=== PATIENT | male | born 1945 | race African-American/Black ===

== ENCOUNTER 2021-07-12 20:28 | Observation (INO) | payer MEDICARE ==
[2021-07-12 20:58] LABS: Bilirubin Neg (Negative); Blood, Urine Negative (Negative); Clarity Clear (Clear); Glucose, Urine (Dipstick) Normal (Negative); Ketone, Urine Negative (Negative); Leukocyte Negative (Negative); Nitrite Negative (Negative); Protein, Urine (Dipstick) Negative (Neg-Trace); Urobilinogen Normal mg/dL (Less than 2)
[2021-07-12 21:09] LABS: Hemoglobin 13.6 g/dL (13.5-17.5); Mean Corpuscular HGB CONC 32.3 g/dL (32.0-36.0); Mean Corpuscular Hemoglobin 28.4 pg (27.0-33.0); Mean Corpuscular Volume 87.9 fl (81.2-95.1); Mean Platelet Volume 11.3 fl (7.4-10.4); Platelet Count 124 10x3/uL (150-450); RBC Distribution Width 14.6 % (11.5-14.5); Red Blood Cell (RBC) Count 4.79 10x6/uL (4.32-5.72); White Blood Cell (WBC) Count 5.7 10x3/uL (3.5-10.5)
[2021-07-12 21:10] LABS: MDiff Complete? YES
[2021-07-12 21:33] LABS: ALT (SGPT) 16 U/L (8-55); AST (SGOT) 22 U/L (5-34); Albumin 4.1 g/dL (3.4-4.8); Alkaline Phosphatase 47 U/L (40-110); Anion Gap 13 mmol/L (10-20); BUN (Urea Nitrogen) 17 mg/dL (8.4-25.7); Bilirubin, Total 0.6 mg/dL (0.2-1.2); Calc. Creatinine Clearance 0 mL/min (70-130); Calcium 8.9 mg/dL (7.8-10.44); Carbon Dioxide 23 mmol/L (23-31); Chloride 108 mmol/L (98-107); Globulin 2.8 g/dL (2.4-3.5); Glucose 97 mg/dL (83-110); Lipase 45 U/L (8-78); Potassium 4.3 mmol/L (3.5-5.1); Protein, Total 6.9 g/dL (5.8-8.1); Sodium 140 mmol/L (136-145)
[2021-07-12 21:52] LABS: CKMB 1.7 ng/mL (0-6.6)
[2021-07-12] MEDS ORDERED: Aspirin Chewable 81 MG TAB ONE (22:08)
[2021-07-12] MEDS ORDERED: Calcium Carbonate 500 MG ChewTAB PO PRN (22:23)
[2021-07-12] MEDS ORDERED: Acetaminophen 325 MG TAB PO PRN (22:23)
[2021-07-12] MEDS ORDERED: Ondansetron PF 4 MG/2 ML Vial IVP PRN (22:23)
[2021-07-12] MEDS ORDERED: HYDROcodone/Acetaminophen 5/325 mg Tablet PO PRN (22:23)
[2021-07-12] MEDS ORDERED: Zolpidem Tartrate 5 MG TAB PO PRN (22:23)
[2021-07-12] MEDS ORDERED: Guaifenesin DM 100-10/5 ML UDCUP PO PRN (22:23)
[2021-07-12] MEDS ORDERED: Lactated Ringer's 1,000 ML IV SCH (22:30)
[2021-07-12] MEDS ORDERED: Famotidine/PF 20 mg/2ml Vial SLOW IVP SCH (22:30)
[2021-07-12 23:29] LABS: Band 14 % (5-11); Eosinophils 1 % (0-10); Lymphocytes 6 % (21-51); Monocytes 8 % (0-10); Neutrophil 71 % (42-75)
[2021-07-12 23:31] LABS: Platelet Morphology Comment Appears Decreased
[2021-07-12 23:32] LABS: Anisocytosis SLIGHT = 6-15 cells (100X) (0-5/hpf); Ovalocytes SLIGHT = 2-5 cells (100X) (0-1/hpf)
[2021-07-13 00:11] VITALS: BMI 22.4
[2021-07-13 00:51] LABS: SARS-CoV-2 NAA Rapid Test Not Detected (NotDetected)
[2021-07-13 05:07] LABS: Anion Gap 14 mmol/L (10-20); BUN (Urea Nitrogen) 17 mg/dL (8.4-25.7); CK (CPK) 121 U/L (30-200); Calc. Creatinine Clearance 77 mL/min (70-130); Calcium 8.7 mg/dL (7.8-10.44); Carbon Dioxide 20 mmol/L (23-31); Chloride 110 mmol/L (98-107); Glucose 106 mg/dL (83-110); Magnesium 1.7 mg/dL (1.6-2.6); Potassium 4.1 mmol/L (3.5-5.1); Sodium 140 mmol/L (136-145)
[2021-07-13 05:23] LABS: Hemoglobin 13.1 g/dL (13.5-17.5); Mean Corpuscular HGB CONC 33.5 g/dL (32.0-36.0); Mean Corpuscular Hemoglobin 28.3 pg (27.0-33.0); Mean Corpuscular Volume 84.4 fl (81.2-95.1); Platelet Count 129 10x3/uL (150-450); RBC Distribution Width 14.7 % (11.5-14.5); Red Blood Cell (RBC) Count 4.63 10x6/uL (4.32-5.72); White Blood Cell (WBC) Count 5.9 10x3/uL (3.5-10.5)
[2021-07-13 05:25] LABS: CKMB 1.5 ng/mL (0-6.6)
[2021-07-13 06:03] LABS: MDiff Complete? YES
[2021-07-13 06:06] LABS: Band 11 % (5-11); Eosinophils 2 % (0-10); Lymphocytes 3 % (21-51); Monocytes 20 % (0-10); Neutrophil 63 % (42-75)
[2021-07-13 06:07] LABS: Anisocytosis SLIGHT = 6-15 cells (100X) (0-5/hpf); Platelet Morphology Comment Appears Decreased
[2021-07-13] MEDS ORDERED: Sotalol HCl 80 MG TAB PO SCH (09:00)
[2021-07-13] MEDS ORDERED: Enoxaparin Sodium 40 MG/0.4 ML SYRINGE SC SCH (09:00)
[2021-07-13] MEDS ORDERED: Aspirin 81 mg Enteric Coated Tablet PO SCH (09:00)
[2021-07-13] MEDS: Metoprolol Tartrate 25 MG TAB PO SCH ×2 (09:02→09:09)
[2021-07-13] MEDS: Famotidine/PF 20 mg/2ml Vial SLOW IVP SCH ×2 (09:03→09:10)
[2021-07-13] MEDS: Finasteride 5 MG TAB PO SCH ×2 (09:03→09:09)
[2021-07-13 09:21] LABS: CKMB 1.1 ng/mL (0-6.6)
[2021-07-13 11:40] VITALS: BP 109/57; TEMP 98.9
[2021-07-13] MEDS ORDERED: Magnesium 2 GM/50 ML(in water) 2 GM in Premix Bag 1 BAG IVPB SCH (15:00)
[2021-07-13] MEDS ORDERED: Rosuvastatin 20 MG TAB PO SCH (21:00)
[2021-07-13] MEDS ORDERED: Tamsulosin HCl 0.4 MG CAP PO SCH (21:00)
[2021-07-13] MEDS ORDERED: Mirtazapine 15 MG TAB PO SCH (21:00)
== END 2021-07-13 20:35 | disposition home or self-care (01) ==
LOC: CSHERS 20:28 → CSHTELE 23:35
PROVIDERS: ADMIT Student in an Organized Health Care Education/Training Program; ATTEND Nurse Practitioner Family
DX: I48.0 Paroxysmal atrial fibrillation (principal); Z79.01 Long term (current) use of anticoagulants; K52.9 Noninfective gastroenteritis and colitis, unspecified; E78.5 Hyperlipidemia, unspecified; N40.0 Benign prostatic hyperplasia without lower urinary tract symptoms; D69.6 Thrombocytopenia, unspecified; I25.118 Atherosclerotic heart disease of native coronary artery with other forms of angina pectoris; I11.0 Hypertensive heart disease with heart failure; I50.32 Chronic diastolic (congestive) heart failure
CPT/HCPCS: 0240U; 80048; 80053; 81003; 82550; 82553 ×2; 83690; 83735; 84439; 84443; 84481; 84484 ×3; 85025 ×2; 93005 ×2; 99285; 36415; 93010; 96374; G0378; J7120; S0028

== ENCOUNTER 2022-11-06 20:12 | Emergency (ER) | payer MEDICARE ==
[~2022-11-06 20:12] MED LIST: Iopamidol 370 76% 100 ML VIAL ONE
[2022-11-06] MEDS ORDERED: dilTIAZem 25 MG/5 ML VIAL ONE (20:51)
[2022-11-06] MEDS ORDERED: Aspirin Chewable 81 MG TAB ONE (20:51)
[2022-11-06 21:25] LABS: #Eosinphils 0.1 10x3/uL (0.0-0.5); #Monocytes 0.5 10x3/uL (0.0-1.1); #Neutrophils 1.8 10x3/uL (1.5-8.4); %Basophils 0.5 % (0.0-2.0); %Eosinophils 2.2 % (0.0-6.0); %Lymphocytes 35.3 % (18.0-47.0); %Monocytes 14.6 % (0.0-10.0); %Neutrophils 47.1 % (40.0-75.0)
[2022-11-06 21:26] LABS: D-Dimer Test 1.04 mg/L FEU (0.19-0.50); PTT 27.3 sec (22.0-33.0); Prothrombin Time 10.9 sec (9.5-12.1)
[2022-11-06 21:31] LABS: Hemoglobin 13.1 g/dL (13.5-17.5); Mean Corpuscular HGB CONC 33.5 g/dL (32.0-36.0); Mean Corpuscular Hemoglobin 28.3 pg (27.0-33.0); Mean Corpuscular Volume 84.4 fl (81.2-95.1); Mean Platelet Volume 11.3 fl (7.4-10.4); Platelet Count 127 10x3/uL (150-450); RBC Distribution Width 14.6 % (11.5-14.5); Red Blood Cell (RBC) Count 4.63 10x6/uL (4.32-5.72); White Blood Cell (WBC) Count 3.7 10x3/uL (3.5-10.5)
[2022-11-06 21:51] LABS: Anion Gap 17 mmol/L (10-20); BUN (Urea Nitrogen) 15 mg/dL (8.4-25.7); Calc. Creatinine Clearance 0 mL/min (70-130); Carbon Dioxide 19 mmol/L (23-31); Chloride 108 mmol/L (98-107); Potassium 4.6 mmol/L (3.5-5.1); Sodium 139 mmol/L (136-145)
[2022-11-06 21:52] LABS: ALT (SGPT) 14 U/L (8-55); AST (SGOT) 24 U/L (5-34); Alkaline Phosphatase 50 U/L (40-110); Bilirubin, Total 0.3 mg/dL (0.2-1.2); Estimated GFR 66; Globulin 3.2 g/dL (2.4-3.5); Glucose 104 mg/dL (83-110); Protein, Total 7.2 g/dL (5.8-8.1)
[2022-11-07] MEDS ORDERED: Acetaminophen 325 MG TAB PO PRN (00:17)
[2022-11-07] MEDS ORDERED: Ondansetron ODT 4 MG TAB PO PRN (00:17)
[2022-11-07] MEDS ORDERED: Ondansetron PF 4 MG/2 ML Vial IVP PRN (00:17)
[2022-11-07] MEDS ORDERED: Acetaminophen 650 MG Suppository PR PRN (00:17)
== END 2022-11-07 01:09 | disposition left against medical advice (07) ==
LOC: CSHERS 20:12
DX: I48.91 Unspecified atrial fibrillation (principal)
CPT/HCPCS: 71275; 80053; 83880; 84484; 85025; 85379; 85610; 85730; Q9967

== ENCOUNTER 2023-05-13 14:32 | Emergency (ER) | payer MEDICARE ==
[2023-05-13 15:14] LABS: ALT (SGPT) 18 U/L (8-55); AST (SGOT) 25 U/L (5-34); Albumin 3.6 g/dL (3.4-4.8); Alkaline Phosphatase 43 U/L (40-110); Anion Gap 14 mmol/L (10-20); BUN (Urea Nitrogen) 19 mg/dL (8.4-25.7); Calc. Creatinine Clearance 0 mL/min (70-130); Calcium 9.2 mg/dL (7.8-10.44); Carbon Dioxide 25 mmol/L (23-31); Chloride 100 mmol/L (98-107); Estimated GFR 58; Globulin 3.9 g/dL (2.4-3.5); Glucose 119 mg/dL (83-110); Potassium 4.1 mmol/L (3.5-5.1); Protein, Total 7.5 g/dL (5.8-8.1); Sodium 135 mmol/L (136-145)
[2023-05-13 15:15] LABS: #Monocytes 0.9 10x3/uL (0.0-1.1); #Neutrophils 3.1 10x3/uL (1.5-8.4); %Basophils 0.4 % (0.0-2.0); %Eosinophils 0.2 % (0.0-6.0); %Lymphocytes 22.2 % (18.0-47.0); %Neutrophils 59.6 % (40.0-75.0); Hematocrit 42.6 % (38.8-50.0); Hemoglobin 14.1 g/dL (13.5-17.5); Mean Corpuscular HGB CONC 33.1 g/dL (32.0-36.0); Mean Corpuscular Hemoglobin 27.4 pg (27.0-33.0); Mean Corpuscular Volume 82.9 fl (81.2-95.1); Mean Platelet Volume 11.2 fl (7.4-10.4); Platelet Count 193 10x3/uL (150-450); RBC Distribution Width 13.9 % (11.5-14.5); Red Blood Cell (RBC) Count 5.14 10x6/uL (4.32-5.72); White Blood Cell (WBC) Count 5.2 10x3/uL (3.5-10.5)
[2023-05-13 15:41] LABS: SARS-CoV-2 NAA Rapid Test Not Detected (NotDetected)
[2023-05-13 15:56] LABS: Troponin I Less than 0.010 ng/mL (< 0.028)
[2023-05-13] MEDS ORDERED: predniSONE 20 MG TAB ONE (16:33)
[2023-05-13 17:46] LABS: Bilirubin Neg (Negative); Blood, Urine 10 (Negative); Clarity Clear (Clear); Glucose, Urine (Dipstick) Normal (Negative); Ketone, Urine 5 mg/dL (Negative); Leukocyte 25 (Negative); Nitrite Negative (Negative); Protein, Urine (Dipstick) 30 mg/dl (Neg-Trace); Urobilinogen Normal mg/dL (Less than 2)
[2023-05-13 17:47] LABS: Bacteria/HPF 1+ HPF (None Seen); CAUTI Indications for Culture Pelvic or flank pain; Mucous/LPF 1+ LPF (<2+); RBC/HPF 0-3 HPF (0-3); Squamous Epithelial 0-3 HPF (0-3); WBC/HPF 0-3 HPF (0-3)
[2023-05-13 17:48] LABS: Urine Culture Reflex No No
== END 2023-05-13 18:37 | disposition home or self-care (01) ==
LOC: CSHERS 14:32
DX: J10.1 Influenza due to other identified influenza virus with other respiratory manifestations (principal); N39.0 Urinary tract infection, site not specified; I10 Essential (primary) hypertension
CPT/HCPCS: 0240U; 71045; 80053; 81001; 83605; 83880; 84484; 85025; 93005; J7512

== ENCOUNTER 2024-01-28 12:39 | Emergency (ER) | payer MEDICARE, OTHER ==
[2024-01-28] MEDS ORDERED: Ketorolac Tromethamine 30 MG (1 mL) VIAL ONE (14:22)
== END 2024-01-28 16:20 | disposition home or self-care (01) ==
LOC: CSHERS 12:39
DX: S13.4XXA Sprain of ligaments of cervical spine, initial encounter (principal); M54.50 Low back pain, unspecified; I10 Essential (primary) hypertension; I48.91 Unspecified atrial fibrillation; V89.9XXA Person injured in unspecified vehicle accident, initial encounter
CPT/HCPCS: 70450; 72125; 72128; 72131; 96372; 99284; J1885

== ENCOUNTER 2024-03-30 02:12 | Emergency (ER) | payer MEDICARE ==
[2024-03-30] MEDS ORDERED: Magnesium 2 GM/50 ML BAG (IN WATER) ONE (02:41)
[2024-03-30 03:11] LABS: #Basophils 0.03 10x3/uL (0.0-0.2); #Eosinophils 0.08 10x3/uL (0.0-0.5); #Monocytes 0.83 10x3/uL (0.0-1.1); #Neutrophils 2.41 10x3/uL (1.5-8.4); %Basophils 0.6 % (0.0-2.0); %Eosinophils 1.7 % (0.0-6.0); %Lymphocytes 28.5 % (18.0-47.0); %Monocytes 17.6 % (0.0-10.0); %Neutrophils 51.2 % (40.0-75.0); Hematocrit 40.6 % (38.8-50.0); Hemoglobin 12.6 g/dL (13.5-17.5); Mean Corpuscular Volume 87.1 fL (81.2-95.1); Mean Platelet Volume 11.3 fL (7.4-10.4); Platelet Count 149 10x3/uL (150-450); RBC Distribution Width 15.1 % (11.5-14.5); Red Blood Cell (RBC) Count 4.66 10x6/uL (4.32-5.72); White Blood Cell (WBC) Count 4.7 10x3/uL (3.5-10.5)
[2024-03-30 03:27] LABS: ALT (SGPT) 14 U/L (8-55); AST (SGOT) 19 U/L (5-34); Albumin 3.7 g/dL (3.4-4.8); Alkaline Phosphatase 56 U/L (40-110); Anion Gap 15 mmol/L (10-20); BUN (Urea Nitrogen) 13 mg/dL (8.4-25.7); Bilirubin, Total 0.5 mg/dL (0.2-1.2); Calc. Creatinine Clearance 0 mL/min (70-130); Calcium 8.8 mg/dL (7.8-10.44); Carbon Dioxide 23 mmol/L (23-31); Chloride 104 mmol/L (98-107); Estimated GFR 75; Globulin 3.6 g/dL (2.4-3.5); Glucose 81 mg/dL (83-110); Magnesium 2.1 mg/dL (1.6-2.6); Potassium 3.9 mmol/L (3.5-5.1); Protein, Total 7.3 g/dL (5.8-8.1); Sodium 138 mmol/L (136-145)
[2024-03-30 03:33] LABS: Troponin I Less than 0.010 ng/mL (< 0.028)
== END 2024-03-30 04:48 | disposition home or self-care (01) ==
LOC: CSHERS 02:12
DX: R25.2 Cramp and spasm (principal); I10 Essential (primary) hypertension
CPT/HCPCS: 80053; 83735; 84484; 85025; 93005; J3475; 96365; 96366